=== PATIENT | female | born 1985 | race Caucasian/White ===

== ENCOUNTER 2016-09-21 21:14 | Emergency (ER) | payer BC, MEDICAID ==
[2016-09-21] MEDS ORDERED: CYCLOBENZAPRINE 10 MG TAB PO ONE (21:27)
[2016-09-21] MEDS ORDERED: LORAZEPAM 0.5 MG TAB PO ONE (21:27)
[2016-09-21] MEDS ORDERED: KETOROLAC TROMETHAMINE 30 MG/ML SOL IM ONE (21:27)
[2016-09-21] MEDS ORDERED: LORAZEPAM 0.5 MG TAB ONE (21:38)
[2016-09-21] MEDS ORDERED: CYCLOBENZAPRINE 10 MG TAB ONE (21:39)
[2016-09-21] MEDS ORDERED: KETOROLAC TROMETHAMINE 30 MG/ML SOL ONE (21:39)
[2016-09-21 22:42] VITALS: RESP 20; O2SAT 97
[2016-09-21 22:56] VITALS: BP 117/76; PULSE 71; TEMP 98.3
== END 2016-09-21 22:30 | disposition home or self-care (01) | DRG 880 ==
LOC: ED 21:14
DX: F41.9 Anxiety disorder, unspecified (principal)
CPT/HCPCS: 93005; 96372; 99283; J1885

== ENCOUNTER 2017-08-20 21:22 | Emergency (ER) | payer OTHER ==
[2017-08-20] MEDS ORDERED: DIPHENHYDRAMINE 25 MG CAP PO ONE (21:57)
[2017-08-20] MEDS ORDERED: DIPHENHYDRAMINE 25 MG CAP ONE (22:04)
[2017-08-20 23:05] VITALS: BP 131/81; PULSE 102; RESP 18; TEMP 98.4; O2SAT 99
== END 2017-08-20 22:17 | disposition home or self-care (01) ==
LOC: ED 21:22
DX: L23.1 Allergic contact dermatitis due to adhesives (principal)
CPT/HCPCS: 99282; A9270-GY